=== PATIENT | female | born 1990 | race Caucasian/White ===

== ENCOUNTER 2018-04-04 08:20 | Inpatient (IN) | payer OTHER ==
[~2018-04-04] VITALS: Ht 157.5 cm; Wt 109.3 kg
[~2018-04-04 08:20] MED LIST: FERR325T23 PO; IBUP-779 PO; MULT1CAP34 PO
[2018-04-04] MEDS ORDERED: DEXT 5%/LR + PITOCIN 20UNITS/L 1,000 ML IV SCH ×2 (09:42→15:57)
[2018-04-04] MEDS ORDERED: LACTATED RINGERS 1,000 ML IV SCH (09:42)
[2018-04-04] MEDS ORDERED: METHYLERGONOVINE MALEATE 0.2 MG/ML IM PRN ×2 (09:45→16:15)
[2018-04-04] MEDS ORDERED: CARBOPROST TROMETHAMINE 250 MCG/ML AMPUL IM PRN (09:45)
[2018-04-04] MEDS ORDERED: BETAMETHASONE ACET/BETAMET 30 MG/5 ML VIAL IM NR (09:45)
[2018-04-04] MEDS ORDERED: LIDOCAINE HCL 1% 20ML VIAL (Pyxis) INJ INFIL SCH (09:45)
[2018-04-04] MEDS ORDERED: NALOXONE HCL 0.4 MG/ML 1ML VIAL IM PRN (09:45)
[2018-04-04] MEDS ORDERED: PENICILLIN G POTASSIUM 5 MMU in DEXT 5% WATER 100 ML IV SCH (10:00)
[2018-04-04 10:41] LABS: BASOPHILS % 0.4 % (0.0-2.0); EOSINOPHILS % 1.1 % (0.0-5.0); HEMATOCRIT. 35.4 % (36.0-48.0); HEMOGLOBIN. 11.4 g/dL (12.0-16.0); LYMPHOCYTES % 23.2 % (20.0-50.0); MEAN CORPUSCULAR HEMOGLOBIN 22.5 pg (28.0-32.0); MEAN CORPUSCULAR VOLUME 69.8 fL (81.0-99.0); NEUTROPHILS % 69.3 % (40.0-76.0); PLATELET 153 x1000/uL (130-400); RED BLOOD CELL COUNT 5.07 mill/uL (4.2-5.4); RED CELL DISTRIBUTION WIDTH 15.4 % (11.6-14.6)
[2018-04-04 10:52] LABS: INR 0.9; PARTIAL THROMBOPLASTIN TIME 26.1 sec (23.4-31.0); PROTHROMBIN TIME 9.4 sec (9.1-11.1)
[2018-04-04] MEDS ORDERED: METFORMIN HCL 500MG TABLET PO NR (11:41)
[2018-04-04 12:27] LABS: PLATELET ESTIMATE NORMAL
[2018-04-04] MEDS ORDERED: OXYTOCIN 20 UNITS in LACTATED RINGERS 1,000 ML IV SCH (12:30)
[2018-04-04] MEDS ORDERED: BUTORPHANOL TARTRATE 2 MG/ML VIAL IM PRN (14:00)
[2018-04-04] MEDS ORDERED: PENICILLIN G POTASSIUM 2.5 MMU in DEXTROSE 5% WATER 50 ML IV SCH (14:00)
[2018-04-04] MEDS ORDERED: BUPIVACAINE HCL/NS/PF EPIDURAL 100 ML EP ONE (15:11)
[2018-04-04 15:12] LABS: HEPATITIS B SURFACE ANTIGEN NEGATIVE
[2018-04-04] MEDS ORDERED: RHO(D) IMMUNE GLOBULIN 300 MCG/SYR IM PRN (16:00)
[2018-04-04] MEDS ORDERED: IBUPROFEN 400MG TABLET PO PRN (16:00)
[2018-04-04] MEDS ORDERED: LANOLIN OINT 0.25 GM TUBE TOP PRN (16:00)
[2018-04-04] MEDS ORDERED: DIPHENHYDRAMINE 25MG CAPSULE PO PRN (16:00)
[2018-04-04 20:00] VITALS: BP 116/74
[2018-04-04] MEDS ORDERED: DOCUSATE SODIUM 100MG CAPSULE PO SCH (21:00)
[2018-04-04] MEDS: IBUPROFEN 800MG TABLET PO PRN (21:03)
[2018-04-04] MEDS ORDERED: INSULIN REGULAR (HUMULIN R) 300UNITS/3ML SUBCUT ONE (23:30)
[2018-04-05 04:00] VITALS: BP 118/66
[2018-04-05 07:34] LABS: BASOPHILS % 0.1 % (0.0-2.0); HEMOGLOBIN. 9.7 g/dL (12.0-16.0); LYMPHOCYTES % 10.8 % (20.0-50.0); MEAN CORPUSCULAR HEMOGLOBIN 22.7 pg (28.0-32.0); MEAN CORPUSCULAR VOLUME 70.3 fL (81.0-99.0); MEAN PLATELET VOLUME 9.1 fl (7.4-10.4); MONOCYTES % 6.4 % (2.0-8.0); NEUTROPHILS % 82.7 % (40.0-76.0); PLATELET 163 x1000/uL (130-400); RED BLOOD CELL COUNT 4.27 mill/uL (4.2-5.4); RED CELL DISTRIBUTION WIDTH 15.7 % (11.6-14.6)
[2018-04-05 08:00] VITALS: BP 115/66
[2018-04-05 08:28] LABS: CLARITY URINE TURBID (CLEAR); COLOR URINE RED (YELLOW); KETONES URINE 4+ (NEGATIVE); LEUKOCYTE ESTERASE URINE 2+ (NEGATIVE); NITRITE URINE POSITIVE (NEGATIVE); OCCULT BLOOD URINE 3+ (NEGATIVE); PROTEIN URINE 3+ (NEGATIVE); SPECIFIC GRAVITY URINE 1.031 (1.005-1.030)
[2018-04-05 08:57] LABS: *BARBITURATES SCREEN URINE NEGATIVE (NEGATIVE)
[2018-04-05 08:58] LABS: *AMPHETAMINES SCREEN URINE NEGATIVE (NEGATIVE); *BENZODIAZEPINES SCREEN URINE NEGATIVE (NEGATIVE)
[2018-04-05] MEDS ORDERED: PRENATAL VIT/FE FUMARATE/FA TABLET PO SCH (09:00)
[2018-04-05 09:02] LABS: CANNABINOID URINE SCREEN NEGATIVE (NEGATIVE)
[2018-04-05 09:04] LABS: *COCAINE SCREEN URINE NEGATIVE (NEGATIVE)
[2018-04-05 09:06] LABS: METHADONE URINE SCREEN NEGATIVE (NEGATIVE)
[2018-04-05 09:08] LABS: PHENCYCLIDINE URINE SCREEN NEGATIVE (NEGATIVE)
[2018-04-05 09:10] LABS: OPIATES URINE SCREEN NEGATIVE (NEGATIVE)
[2018-04-05] MEDS ORDERED: BETAMETHASONE ACET/BETAMET 30 MG/5 ML VIAL IM NR (10:00)
[2018-04-05] MEDS ORDERED: INSULIN REGULAR (HUMULIN R) 300UNITS/3ML SUBCUT SCH (10:45)
[2018-04-05 16:00] VITALS: BP 110/56
[2018-04-05] MEDS: IBUPROFEN 800MG TABLET PO PRN (19:32)
[2018-04-05 19:40] VITALS: BP 115/62
[2018-04-06 05:00] VITALS: BP 105/68
[2018-04-06] MEDS: IBUPROFEN 800MG TABLET PO PRN (05:23)
[2018-04-06 07:30] VITALS: BP 118/52
== END 2018-04-06 13:00 | disposition home or self-care (01) | DRG 560 ==
LOC: 8 EST LDRP 08:20 → OBSVTOIN 08:20 → 8EST 16:55
PROVIDERS: ADMIT Obstetrics & Gynecology; ATTEND Obstetrics & Gynecology
PROC: 10E0XZZ Delivery of Products of Conception, External Approach (ICD-10-PCS; principal; 2018-04-04 15:36)
DX: O42.913 Preterm premature rupture of membranes, unspecified as to length of time between rupture and onset of labor, third trimester (principal); O69.81X0 Labor and delivery complicated by cord around neck, without compression, not applicable or unspecified; Z37.0 Single live birth; Z3A.35 35 weeks gestation of pregnancy
CPT/HCPCS: 36415; 76805; 76818; 80305; 82947; 82962; 86592; 86703; 86762; 86850; 86900; 87340; J0595; J0702; J1815; J2540; J3490; J7060; J7120; A4315

== ENCOUNTER 2018-12-07 19:55 | Emergency (ER) | payer OTHER ==
[~2018-12-07] VITALS: Ht 154.9 cm; Wt 82.0 kg
[2018-12-07 20:03] VITALS: BP 113/80
== END 2018-12-07 23:15 | disposition left against medical advice (07) ==
LOC: ER 19:55
DX: R10.9 Unspecified abdominal pain (principal); Z53.21 Procedure and treatment not carried out due to patient leaving prior to being seen by health care provider